=== PATIENT | female | born 1995 | race African-American/Black ===

== ENCOUNTER 2017-02-18 12:25 | Emergency (ER) | payer OTHER ==
[2017-02-18 12:37] VITALS: BP 127/74; PULSE 87; TEMP 98.5; BMI 26.9
--- NOTE | 2017-02-18 13:19 | PDOC ---
History of Present Illness - General Chief Complaint: Respiratory Stated Complaint: BODY ACHES Time Seen by Provider: 02/18/17 13:01 History Source: Patient Exam Limitations: No Limitations - History of Present Illness Initial Comments: CHIEF COMPLAINT: 21 y/o afebrile female with no significant PMH c/o body aches since yesterday. HISTORY OF PRESENT ILLNESS: The patient denies f/c, n/v/d, MONET, cough, runny nose, sore throat, CP, SOB, abd pain, back pain, hematuria, dysuria. The patient is worried because she was exposed to someone with strep throat. Vital signs on arrival are within normal limits. REVIEW OF SYSTEMS: GENERAL/CONSTITUTIONAL: No fever/chills. No weakness. No weight change. +body aches HEAD, EYES, EARS, NOSE AND THROAT: No change in vision. No ear pain or discharge. No sore throat. CARDIOVASCULAR: No chest pain or shortness of breath. RESPIRATORY: No cough, wheezing, or hemoptysis. GASTROINTESTINAL: No nausea, vomiting, diarrhea, constipation. GENITOURINARY: No dysuria, frequency, or change in urination. MUSCULOSKELETAL: No joint or muscle swelling or pain. No neck or back pain. SKIN: No rash or easy bruising. NEUROLOGIC: No headache, vertigo, loss of consciousness, or loss of sensation. PHYSICAL EXAM: GENERAL: The patient is awake, alert, and fully oriented, in no acute distress. SHe is well appearing and ambulatory. HEAD: Normal with no signs of trauma. ENT: Pupils equal, round and reactive to light, extraocular movements intact, sclera anicteric, conjunctiva clear. Neck supple. No tonsilar erythema, edema or exudate. No anterior cervical lymphadenopathy. LUNGS: Clear to auscultation bilaterally. Normal excursion. No respiratory distress or use of accessory muscles. CV: RRR, S1/S2, no MRG. Cap refill < 2 sec. ABDOMEN: Soft, non-distended, non-tender even to deep palpation, no hepatomegaly or splenomegaly, no masses. EXTREMITIES: Normal range of motion, no edema. NEUROLOGICAL: Normal speech, normal gait. CN II-XII grossly intact. PSYCH: Normal mood, normal affect. SKIN: Warm, dry, normal turgor, no rashes or lesions noted. Past History - Past Medical History Allergies/Adverse Reactions: Allergies Allergy/AdvReac Type Severity Reaction Status Date / Time No Known Allergies Allergy Verified 02/18/17 12:34 Home Medications: Ambulatory Orders NK [No Known Home Medication] 02/18/17 Asthma: Yes - Psycho/Social/Smoking Cessation Hx Suicidal Ideation: No Smoking History: Never smoked *Physical Exam - Vital Signs Last Vital Signs Temp Pulse Resp BP Pulse Ox 98.5 F 87 19 127/74 98 02/18/17 12:34 02/18/17 12:34 02/18/17 12:34 02/18/17 12:34 02/18/17 12:34 Medical Decision Making - Medical Decision Making A/P: 21 y/o afebrile female with body aches and worried because she was exposed to strep. Plan is as follows: 1. influenza 2. rapid strep Influenza A&B - negative rapid strep - negative The patient was given her results. Suggested she f/u wtih her PCP if symptoms continue and return to the ER with any worsening or concerning symptoms. The patient verbalizes understanding of all instructions, has no further questions and is awaiting discharge. *DC/Admit/Observation/Transfer Diagnosis at time of Disposition: Worried well - Discharge Dispostion Disposition: HOME Condition at time of disposition: Good - Referrals Referrals: Lucas Valadez [Primary Care Provider] -
== END 2017-02-18 14:04 | disposition home or self-care (01) ==
LOC: JERFT 12:25
DX: Z03.89 Encounter for observation for other suspected diseases and conditions ruled out (principal)
CPT/HCPCS: 87070; 87430; 87804; 99281-25